=== PATIENT | male | born 1980 ===

== ENCOUNTER 2016-11-15 19:55 | Observation (INO) | payer BC, OTHER ==
[2016-11-15] MEDS ORDERED: ASPIRIN TABLET 325 MG TAB ONE (20:04)
[2016-11-15] MEDS ORDERED: ASPIRIN TABLET 325 MG TAB PO ONE (20:23)
[2016-11-15] MEDS ORDERED: NITROGLYCERIN 0.4 MG 25 EA TAB SL ONE (20:36)
[2016-11-15] MEDS ORDERED: SODIUM CHLORIDE 0.9% 1000ML 1,000 ML ONE (20:37)
[2016-11-15] MEDS ORDERED: SODIUM CHLORIDE 0.9% 1000ML 1,000 ML IVS ONE (20:39)
--- NOTE | 2016-11-15 20:44 | ED.PDOC ---
History of Present Illness - General Chief Complaint: Chest Pain/[place] Stated Complaint: CP, dizzy, nausea, anxiety Time Seen by Provider: 11/15/16 20:38 Source: patient, RN notes reviewed, Vital Signs reviewed Exam Limitations: no limitations - History of Present Illness Initial Comments: Miguel Toure 36 y/o male stated that after trimming tree limbs and driving home experienced dizziness,on and off pressure on his substernal area,felt nauseated which started about 1830h talk to his uncle and was advised to come to er. Timing/Duration: 1-3 hours Severity: moderate Location: substernal, epigastric Activities at Onset: none Prior Chest Pain/Cardiac Workup: no prior chest pain, no prior cardiac workup Improving Factors: nothing Worsening Factors: nothing Nitro Today/Relief: no nitro taken today Aspirin Treatment Today: 325 mg x 1, provided by ED Associated Symptoms: nausea/vomiting, shortness of breath, other - diiziness Allergies/Adverse Reactions: Allergies NO KNOWN ALLERGY Allergy (Verified 11/15/16 20:22) Home Medications: Ambulatory Orders ALPRAZolam [Xanax] 0.5 mg PO PRN 11/15/16 Calcium Carbonate (Antacid) [Tums] 500 mg PO PRN 11/15/16 Ibuprofen [Motrin] 200 mg PO PRN 11/15/16 Review of Systems - Review of Systems Constitutional: States: no symptoms reported EENTM: States: no symptoms reported Respiratory: States: no symptoms reported Cardiology: States: see HPI Gastrointestinal/Abdominal: States: no symptoms reported Genitourinary: States: no symptoms reported Musculoskeletal: States: no symptoms reported Skin: States: no symptoms reported Neurological: States: no symptoms reported Endocrine: States: no symptoms reported Hematologic/Lymphatic: States: no symptoms reported Past Medical History (General) - Patient Medical History Hx Seizures: No Hx Stroke: No Hx Dementia: No Hx Asthma: No Hx of COPD: No Hx Cardiac Disorders: No Hx Congestive Heart Failure: No Hx Pacemaker: No Hx Hypertension: No Hx Thyroid Disease: No Hx Diabetes: No Hx Gastroesophageal Reflux: Yes Hx Renal Disease: No Hx Cancer: No Hx of HIV: No Hx Hepatitis C: No Hx MRSA: No Hx Other PMH: Yes - anxiety Surgical History: no surgical history - Vaccination History Hx Tetanus, Diphtheria Vaccination: No Hx Influenza Vaccination: No Hx Pneumococcal Vaccination: No Immunizations Up to Date: No - Social History Hx Tobacco Use: Yes Hx Chewing Tobacco Use: No Hx Alcohol Use: Yes Hx Substance Use: Yes Hx Substance Use Treatment: No Hx Depression: No Feels Threatened In Home Enviroment: No Feels Threatened In a Relationship: No Hx Physical Abuse: No Hx Emotional Abuse: No Hx Suspected Abuse: No Family Medical History - Family History Mother Family History: Unknown Hx Cardiac Disease: Yes - mom Physical Exam - Physical Exam General Appearance: Alert, No apparent distress Eyes, Ears, Nose, Throat Exam: PERRL/EOMI, normal ENT inspection, TMs normal Neck: non-tender, full range of motion, supple Respiratory: chest non-tender, lungs clear, normal breath sounds, no respiratory distress Cardiovascular/Chest: normal peripheral pulses, regular rate, rhythm, no gallop , no murmur Peripheral Pulses: radial,right: 2+, radial,left: 2+ Extremity: normal range of motion, non-tender Neurologic: no motor/sensory deficits, alert, normal mood/affect, oriented x 3 Skin Exam: normal color, warm/dry Lymphatic: no adenopathy Progress - Results/Orders Results/Orders: 11/15/16 20:30 EKG STAT Laboratory Results WBC 8.2 K/mm3 (4.8-10.8) 11/15/16 20: RBC 4.99 M/mm3 (4.70-6.10) 11/15/16 20: Hgb 14.8 gm/dL (14.0-18.0) 11/15/16 20:17 Hct 43.4 % (42.0-52.0) 11/15/16 20: MCV 86.9 fl (80.0-94.0) 11/15/16 20: MCH 29.6 pg (27.0-31.0) 11/15/16 20: MCHC 34.0 g/dL (33.0-37.0) 11/15/16 20: RDW 13.3 % (11.5-14.5) 11/15/16 20: Plt Count 367 K/mm3 (130-400) 11/15/16 20:17 MPV 7.4 fl (7.40-10.4) 11/15/16 20:17 Absolute Neuts (auto) 5.10 K/uL (1.8-6.8) 11/15/16 20:17 Absolute Lymphs (auto) 2.10 K/uL (1.0-3.4) 11/15/16 20:17 Absolute Monos (auto) 0.50 K/uL (0.2-0.8) 11/15/16 20:17 Absolute Eos (auto) 0.40 K/uL (0.0-0.4) 11/15/16 20:17 Absolute Basos (auto) 0.10 K/uL (0.0-0.1) 11/15/16 20:17 Neutrophils % 61.7 % (42.0-78.0) 11/15/16 20: Lymphocytes % 26.2 % (20.0-50.0) 11/15/16 20: Monocytes % 5.9 % (2.0-9.0) 11/15/16 20: Eosinophils % 5.3 % (1.0-5.0) H 11/15/16 20: Basophils % 0.9 % (0.0-2.0) 11/15/16 20:17 PT 10.3 SECONDS (9.4-12.5) 11/15/16 20:17 INR 0.910 11/15/16 20:17 PTT (SP) 25.9 SECONDS (25.1-36.5) 11/15/16 20:17 D-Dimer, Quantitative < 230 ng/mL (0-230) 11/15/16 20:17 Sodium 137 mmol/L (135-145) 11/15/16 20:17 Potassium 3.9 mmol/L (3.6-5.0) 11/15/16 20:17 Chloride 104 mmol/L (101-111) 11/15/16 20:17 Carbon Dioxide 28 mmol/L (21-31) 11/15/16 20:17 Anion Gap 8.9 (12-18) L 11/15/16 20:17 BUN 17 mg/dL (7-18) 11/15/16 20:17 Creatinine 1.16 mg/dL (0.6-1.3) 11/15/16 20:17 BUN/Creatinine Ratio 14.7 (10-20) 11/15/16 20:17 Random Glucose 143 mg/dL (70-105) H 11/15/16 20:17 Serum Osmolality 277.8 mOsm/L (275-295) 11/15/16 20:17 Calcium 8.7 mg/dL (8.4-10.2) 11/15/16 20:17 Total Bilirubin 0.4 mg/dL (0.2-1.0) 11/15/16 20:17 AST 17 IU/L (10-42) 11/15/16 20: ALT 15 IU/L (10-60) 11/15/16 20:17 Alkaline Phosphatase 54 IU/L (42-121) 11/15/16 20: Creatine Kinase 174 IU/L (38-174) 11/15/16 22:25 CK-MB (CK-2) 1.9 ng/mL (0.0-4.4) 11/15/16 22:25 CK-MB (CK-2) % Not Reportable 11/15/16 22:25 Troponin I < 0.02 ng/mL (0.01-0.05) 11/15/16 22:25 B-Natriuretic Peptide 11.9 pg/ml (0-100) 11/15/16 20:17 Serum Total Protein 6.7 gm/dL (6.4-8.2) 11/15/16 20: Albumin 4.0 g/dl (3.2-5.5) 11/15/16 20: Globulin 2.7 gm/dL (2.3-3.5) 11/15/16 20:17 Albumin/Globulin Ratio 1.5 (1.1-1.9) 11/15/16 20:17 Urine Color Yellow (Yellow) 11/15/16 21:50 Urine Appearance Clear (Clear) 11/15/16 21:50 Urine pH 6.5 (4.5-7.8) 11/15/16 21:50 Ur Specific [place] 1.015 (1.005-1.030) 11/15/16 21:50 Urine Protein Negative mg/dL 11/15/16 21:50 Urine Glucose (UA) Negative mg/dL (Negative) 11/15/16 21:50 Urine Ketones Negative mg/dL (NEGATIVE) 11/15/16 21:50 Urine Blood Negative (Negative) 11/15/16 21:50 Urine Nitrite Negative 11/15/16 21:50 Urine Bilirubin Negative (NEGATIVE) 05/21/17 21:50 Urine Urobilinogen 0.2 mg/dL (0.2-1.0) 11/15/16 21:50 Ur Leukocyte Esterase Negative (Negative) 11/15/16 21:50 Urine RBC 0-1 /hpf 11/15/16 21:50 Urine WBC 0 /hpf 11/15/16 21:50 Ur Epithelial Cells 0 /hpf 11/15/16 21:50 Urine Bacteria 0 11/15/16 21:50 Urine Opiates Screen Negative ng/mL (2000) 11/15/16 21:50 Urine Barbiturates Negative ng/mL (200) 11/15/16 21:50 Ur Phencyclidine Scrn Negative ng/mL (25) 11/15/16 21:50 U Amphetamin/Meth Scrn Positive ng/mL (1000) H 11/15/16 21:50 U Benzodiazepines Scrn Negative ng/mL (200) 11/15/16 21:50 U Cocaine Metab Screen Negative ng/mL (300) 11/15/16 21:50 U Cannabinoids Screen Positive ng/mL (50) H 11/15/16 21:50 - EKG/XRAY/CT EKG: Sinus, ST elevation - 2,3,avf Comments: heart rate 67 XRAY: chest - no acute abnormality noted Departure - Departure Clinical Impression: Chest pain Qualifiers: Chest pain type: unspecified Qualified Code(s): R07.9 - Chest pain, unspecified Time of Disposition: 22:58 - D/W Dhara Smyth-ANP/Hospitalist for OBS Disposition: Admit Patient Condition: Good Departure Forms: Patient Portal Self Enrollment Referrals: Terrence Garcia MD [Primary Care Provider] - 1-2 Weeks Home Medications: Ambulatory Orders ALPRAZolam [Xanax] 0.5 mg PO PRN 11/15/16 Calcium Carbonate (Antacid) [Tums] 500 mg PO PRN 11/15/16 Ibuprofen [Motrin] 200 mg PO PRN 11/15/16
--- NOTE | 2016-11-15 21:55 | RAD ---
EXAM DESCRIPTION: Chest,1 View CLINICAL HISTORY: Atypical chest pain COMPARISON: None FINDINGS: Cardiac silhouette is within normal limits. EKG leads project over the chest. There is no focal parenchymal or pleural disease. There is no acute osseous process visualized. IMPRESSION: No evidence of acute cardiopulmonary disease. Electronically signed by: Selvin Calvo MD 11/15/2016 9:54 PM CDT
[2016-11-15] MEDS ORDERED: ALPRAZolam 0.25 MG TAB PO ONE (21:56)
[2016-11-15] MEDS ORDERED: LIDOCAINE VIS-MYLANTA 30 ML UD PO ONE ×2 (23:25→23:26)
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
[2016-11-15] MEDS ORDERED: IV SET AND CAP CHANGE INJ INJ SCH (23:45)
[2016-11-15] MEDS ORDERED: NITROGLYCERIN 0.4 MG 25 EA TAB SL PRN (23:49)
[2016-11-15] MEDS ORDERED: SODIUM CHLORIDE 0.9% (FLUSH) 10 ML SYG IV PRN (23:49)
[2016-11-15] MEDS ORDERED: MORPHINE SULFATE INJ 10 MG/ML VIAL IV PRN (23:49)
[2016-11-15] MEDS ORDERED: ACETAMINOPHEN 325 MG TAB PO PRN (23:49)
[2016-11-15] MEDS ORDERED: ALPRAZolam 0.25 MG TAB PO PRN (23:52)
[2016-11-16] MEDS ORDERED: CALCIUM CARBONATE (ANTACID) 500 MG CHEWABLE TAB PO ONE (02:21)
[2016-11-16 06:12] VITALS: TEMP 97.6
[2016-11-16] MEDS ORDERED: PANTOPRAZOLE SODIUM IV 40 MG VIAL IV SCH (06:30)
[2016-11-16] MEDS ORDERED: PANTOPRAZOLE SODIUM TAB 40 MG PO ONE (07:23)
[2016-11-16] MEDS ORDERED: ASPIRIN TABLET 325 MG TAB PO SCH (09:00)
[2016-11-16] MEDS ORDERED: SODIUM CHLORIDE 0.9% (FLUSH) 10 ML SYG IV SCH (09:00)
[2016-11-16 10:59] VITALS: BP 105/61; O2SAT 18
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
== END 2016-11-16 11:45 | disposition home or self-care (01) ==
LOC: ER 19:55 → MS 23:42
PROVIDERS: ADMIT Nurse Practitioner Acute Care; ATTEND Nurse Practitioner Family
DX: R07.89 Other chest pain (principal); F41.9 Anxiety disorder, unspecified; F17.210 Nicotine dependence, cigarettes, uncomplicated; F15.10 Other stimulant abuse, uncomplicated; K21.9 Gastro-esophageal reflux disease without esophagitis; R42 Dizziness and giddiness; R11.2 Nausea with vomiting, unspecified; Z79.899 Other long term (current) drug therapy; Z82.49 Family history of ischemic heart disease and other diseases of the circulatory system; Z83.79 Family history of other diseases of the digestive system
CPT/HCPCS: 36415 ×5; 71010; 80053; 80061; 80307; 81001; 82550 ×4; 82553 ×4; 83880; 84484 ×4; 85025; 85379; 85610; 85730; 93005 ×2; 94760 ×2; 96361; 96374; 99284; G0378; J7030

== ENCOUNTER 2017-10-30 17:49 | Emergency (ER) | payer SELFPAY ==
[2017-10-30] MEDS ORDERED: LACTATED RINGERS 1,000 ML IVS ONE (18:01)
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
[2017-10-30] MEDS ORDERED: PROMETHAZINE HCL INJ 25 MG/ML VIAL IM ONE (18:02)
[2017-10-30] MEDS ORDERED: DICYCLOMINE HCL INJ 20 MG/2 ML AMP IM ONE (18:50)
[2017-10-30] MEDS ORDERED: MORPHINE SULFATE INJ 10 MG/ML VIAL IV ONE (18:50)
[2017-10-30 20:16] VITALS: BP 105/53; TEMP 98.7; O2SAT 97
== END 2017-10-30 20:00 | disposition home or self-care (01) ==
LOC: ER 17:49
DX: R19.7 Diarrhea, unspecified (principal); R10.9 Unspecified abdominal pain; K21.9 Gastro-esophageal reflux disease without esophagitis; Z87.891 Personal history of nicotine dependence
CPT/HCPCS: 36415; 80048; 80076; 81001; 82550; 82553; 83690; 84484; 85025; 85610; 85730; J0500; J2270; J2550; J7120

== ENCOUNTER 2018-01-01 19:37 | Emergency (ER) | payer SELFPAY ==
[2018-01-01] MEDS ORDERED: SODIUM CHLORIDE 0.9% 1000ML 1,000 ML IVS PRN (19:46)
[2018-01-01] MEDS ORDERED: SODIUM CHLORIDE 0.9% 1000ML 1,000 ML IVS ONE (19:59)
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
[2018-01-01 22:18] VITALS: O2SAT 100
[2018-01-01 23:15] VITALS: BP 107/69; TEMP 98.2
== END 2018-01-01 23:15 | disposition home or self-care (01) ==
LOC: ER 19:37
DX: S09.90XA Unspecified injury of head, initial encounter (principal); E86.0 Dehydration; K21.9 Gastro-esophageal reflux disease without esophagitis; S80.212A Abrasion, left knee, initial encounter; S80.211A Abrasion, right knee, initial encounter; S30.810A Abrasion of lower back and pelvis, initial encounter; S40.812A Abrasion of left upper arm, initial encounter; S40.811A Abrasion of right upper arm, initial encounter; Y09 Assault by unspecified means; Y92.9 Unspecified place or not applicable
CPT/HCPCS: 36416; 70450; 71045; 82948; 94760; J7030